=== PATIENT | female | born 1945 | race Caucasian/White ===

== ENCOUNTER 2016-05-01 09:58 | Day surgery (SDC) | payer BC ==
--- NOTE | ~2016-05-01 | EGD ---
EGD REPORT [facility] [address] [place] [address] NAME: PRITI MCCALL : [birth year] STATUS : REG [facility] [place] PAT#: [id number] AGE: 70 ADM/REG DATE : 05/01/16 MR#: [id number] REPORT SERV DATE: 05/01/16 DICTATED BY: EMILIO GALEANA DATE: 05/01/16 REPORT STATUS : Draft TRANSCRIBED BY: [facility] DATE: 05/01/16 Endoscopy Center Patient Name: Priti Mccall Date of : 1945 Attending MD: SONNY GALEANA MD Procedure Date No Time: 05/01/2016 Procedure: Colonoscopy Indications: Abdominal pain in the right lower quadrant, Constipation Referring MD: GLORIA SWIFT Medicines: See the Anesthesia note for documentation of the administered medications Complications: No immediate complications. Estimated blood loss: None. Procedure: Pre-Anesthesia Assessment: - ASA Grade Assessment: III - A patient with severe systemic disease. - Prior to the procedure, a History and Physical was performed, and patient medications and allergies were reviewed. The patient's tolerance of previous anesthesia was also reviewed. The risks and benefits of the procedure and the sedation options and risks were discussed with the patient. All questions were answered, and informed consent was obtained. Prior Anticoagulants: The patient has taken aspirin and Plavix (clopidogrel), last doses were 1 day prior to procedure. After reviewing the risks and benefits, the patient was deemed in satisfactory condition to undergo the procedure. After I obtained informed consent, the scope was passed under direct vision. Throughout the procedure, the patient's blood pressure, pulse, and oxygen saturations were monitored continuously. The PCF [id number] was introduced through the anus and advanced to the terminal ileum. The ileocecal valve, appendiceal orifice, terminal ileum and rectum were photographed. The entire colon was examined. The colonoscopy was performed without difficulty. The patient tolerated the procedure well. The quality of the bowel preparation was adequate. Findings: The perianal and digital rectal examinations were normal. The terminal ileum appeared normal. A sessile polyp was found in the mid ascending colon. The polyp was 3 mm in size. The polyp was removed with a cold biopsy forceps. Resection and retrieval were complete. Multiple medium-mouthed diverticula were found in the sigmoid colon and in the descending colon. EGD REPORT [address] [place]. [address] NAME: PRITI MCCALL : [birth year] STATUS : REG [facility]#: [id number] AGE: 70 ADM/REG DATE : 05/01/16 MR#: [id number] REPORT SERV DATE: 05/01/16 DICTATED BY: EMILIO GALEANA DATE: 05/01/16 REPORT STATUS : Draft TRANSCRIBED BY: [email or web address] DATE: 05/01/16 Non-bleeding internal hemorrhoids were found during retroflexion and were Grade I (internal hemorrhoids that do not prolapse). No other significant abnormalities were identified in a careful examination of the remainder of the colon. Impression: - The examined portion of the ileum was normal. - One 3 mm polyp in the mid ascending colon. Resected and retrieved. - Diverticulosis in the sigmoid colon and in the descending colon. - Non-bleeding internal hemorrhoids. Recommendation: - Patient has a contact number available for emergencies. The signs and symptoms of potential delayed complications were discussed with the patient. Return to normal activities tomorrow. Written discharge instructions were provided to the patient. - Discharge patient to home. - High fiber diet indefinitely. - Continue present medications. - Await pathology results. - Repeat colonoscopy in 5 years for surveillance. Procedure Code(s): --- Professional --- 73432, Colonoscopy, flexible, proximal to splenic flexure; with biopsy, single or multiple Diagnosis Code(s): --- Professional --- K64.0, First degree hemorrhoids K57.30, Diverticulosis of large intestine without perforation or abscess without bleeding D12.2, Benign neoplasm of ascending colon R10.31, Right lower quadrant pain K59.00, Constipation, unspecified CPT copyright 2013 [employer]. All rights reserved. The codes documented in this report are preliminary and upon electroplater review may be revised to meet current compliance requirements. SONNY GALEANA MD 05/01/2016 11:57 AM This report has been signed electronically. Number of Addenda: 0 EGD REPORT [facility] [address] [place] [address] NAME: PRITI MCCALL : [birth year] STATUS : REG [facility] [place] PAT#: [id number] AGE: 70 ADM/REG DATE : 05/01/16 MR#: [id number] REPORT SERV DATE: 05/01/16 DICTATED BY: EMILIO GALEANA DATE: 05/01/16 REPORT STATUS : Draft TRANSCRIBED BY: [employer] DATE: 05/01/16 Note Initiated On: 05/01/2016 11:19 AM Scope Withdrawal Time 0 hours 7 minutes 57 seconds [address] [id number]
--- NOTE | ~2016-05-01 | EGD ---
EGD REPORT [facility] [address] [place]. [address] NAME: PRITI MCCALL : 41 STATUS : [place] [facility] [place] PAT#: [id number] AGE: 70 ADM/REG DATE : 05/01/16 MR#: [id number] REPORT SERV DATE: 05/01/16 DICTATED BY: EMILIO GALEANA DATE: 05/01/16 REPORT STATUS : Draft [facility]ANS[facility]IBED [facility]: [facility] DATE: 05/01/16 Endoscopy Center Patient Name: Priti Mccall Date of : 1945 Attending MD: SONNY GALEANA MD Procedure Date No Time: 05/01/2016 Procedure: Upper GI endoscopy Indications: Epigastric abdominal pain, Gastro-esophageal reflux disease Referring MD: GLORIA SWIFT Medicines: See the Anesthesia note for documentation of the administered medications Complications: No immediate complications. Estimated blood loss: Minimal. Procedure: Pre-Anesthesia Assessment: - ASA Grade Assessment: III - A patient with severe systemic disease. - Prior to the procedure, a History and Physical was performed, and patient medications and allergies were reviewed. The patient's tolerance of previous anesthesia was also reviewed. The risks and benefits of the procedure and the sedation options and risks were discussed with the patient. All questions were answered, and informed consent was obtained. Prior Anticoagulants: The patient has taken aspirin and Plavix (clopidogrel), last doses were 1 day prior to procedure. After reviewing the risks and benefits, the patient was deemed in satisfactory condition to undergo the procedure. After obtaining informed consent, the endoscope was passed under direct vision. Throughout the procedure, the patient's blood pressure, pulse, and oxygen saturations were monitored continuously. The GIF H190 [id number] was introduced through the mouth, and advanced to the third part of duodenum. The upper GI endoscopy was accomplished without difficulty. The patient tolerated the procedure well. Findings: The examined duodenum was normal. Diffuse mild inflammation characterized by erythema was found in the gastric antrum. Biopsies were taken with a cold forceps for histology. The cardia and gastric fundus were normal on retroflexion. The Z-line was irregular and was found at the gastroesophageal junction. Biopsies were taken with a cold forceps for histology. No other significant abnormalities were identified in a careful EGD REPORT [address] [address] NAME: PRITI MCCALL : [birth year] STATUS : [place] [facility] [place] PAT#: [id number] AGE: 70 ADM/REG DATE : 05/01/16 MR#: [id number] REPORT SERV DATE: 05/01/16 DICTATED BY: EMILIO GALEANA DATE: 05/01/16 REPORT STATUS : Draft TRANSCRIBED BY: [employer] DATE: 05/01/16 examination of the esophagus. Impression: - Normal examined duodenum. - Gastritis. Biopsied. - Z-line irregular, at the gastroesophageal junction. Biopsied. Recommendation: - Patient has a contact number available for emergencies. The signs and symptoms of potential delayed complications were discussed with the patient. Return to normal activities tomorrow. Written discharge instructions were provided to the patient. - Regular diet. - Discharge patient to home. - Continue present medications. - Await pathology results. Procedure Code(s): --- Professional --- 26651, Esophagogastroduodenoscopy, flexible, transoral; with biopsy, single or multiple Diagnosis Code(s): --- Professional --- K29.70, Gastritis, unspecified, without bleeding K22.8, Other specified diseases of esophagus R10.13, Epigastric pain K21.9, Gastro-esophageal reflux disease without esophagitis CPT copyright 2013 [employer]. All rights reserved. The codes documented in this report are preliminary and upon industrial machine system technician review may be revised to meet current compliance requirements. SONNY GALEANA MD 05/01/2016 11:39 AM This report has been signed electronically. Number of Addenda: 0 Note Initiated On: 05/01/2016 11:23 AM Scope Withdrawal Time 0 hours 0 minutes 0 seconds [id number] [place] [id number]
[~2016-05-01 09:58] MED LIST: ASA5GR PO; ASAB PO; BIOTIN5 MG OR; CAP25 PO; CAP50 PO; CARAC 0.5% EX; CLARINEX PO; CLARIT10 PO; CLOBETASOL0.051 EX; CLOBETASOL0.054 EX; COLCH6 PO; CRESTOR40 MG PO; DYAZIDE1 CAP PO; FISH-EPA1000 MG PO; FLUOROURACIL 5% EX; FOLIC ACID PO; FOLIC ACID800 MCG PO; FOLIC PO; Folic Acid; Folic Acid PO; HYDROCHLOROT25 MG PO; INDOCIN 50 MG C50 MG OR; LEVOTHYROXIN137 MCG PO; LIPITOR20 PO; LOP25 PO; MAX25 PO; NIACIN 500 PO; NIACIN FLUSH FREE; NIACOR500 MG; PLAVIX PO; PRILO PO; PROTONIX PO; REST15 PO; RESTORIL 15 MG15 MG OR; RESTORIL30 MG PO; SINGULAIR1 PO; SYN.15 PO; SYN075 PO; SYN125 PO; TOBDEXOO OPH; TOPXL100 PO; VESICARE5 PO; VIT B-SIX 50 MG50 MG OR; VITAMIN B-122500 MCG SL; VITAMIN B12 PO; VITAMIN B6 PO; VITAMIN D1000 UNI1 PO; VITC500 PO; VITD PO; WESTCORT EX; Z100 PO; Z300 PO; ZANTAC150 MG PO; ZANTAC300 MG PO; ZETIA PO
== END 2016-05-01 23:59 | disposition home or self-care (01) ==
LOC: DMU 09:58
PROVIDERS: Internal Medicine Gastroenterology
PROC: 0DBK8ZZ Excision of Ascending Colon, Via Natural or Artificial Opening Endoscopic (ICD-10-PCS; 2016-05-01)
PROC: 0DBM8ZZ Excision of Descending Colon, Via Natural or Artificial Opening Endoscopic (ICD-10-PCS; 2016-05-01)
PROC: 0DB68ZX Excision of Stomach, Via Natural or Artificial Opening Endoscopic, Diagnostic (ICD-10-PCS; principal; 2016-05-01 11:30)
PROC: 0DB48ZX Excision of Esophagogastric Junction, Via Natural or Artificial Opening Endoscopic, Diagnostic (ICD-10-PCS; 2016-05-01 11:30)
DX: D12.2 Benign neoplasm of ascending colon (principal); K29.70 Gastritis, unspecified, without bleeding; K22.8 Other specified diseases of esophagus; R10.13 Epigastric pain; K21.9 Gastro-esophageal reflux disease without esophagitis; K64.0 First degree hemorrhoids; K57.30 Diverticulosis of large intestine without perforation or abscess without bleeding; K59.00 Constipation, unspecified; R10.31 Right lower quadrant pain; I12.9 Hypertensive chronic kidney disease with stage 1 through stage 4 chronic kidney disease, or unspecified chronic kidney disease; N18.9 Chronic kidney disease, unspecified; I25.10 Atherosclerotic heart disease of native coronary artery without angina pectoris; I25.2 Old myocardial infarction
CPT/HCPCS: 88305